=== PATIENT | female | born 1955 | race African-American/Black ===

== ENCOUNTER 2016-10-19 13:47 | Emergency (ER) | payer OTHER ==
--- NOTE | 2016-10-19 16:42 | Emergency Department Report ---
Chief Complaint: Abdominal Pain Stated Complaint: SIDE PAIN Time Seen by Provider: 10/19/16 16:36 - HPI History of Present Illness: 61-year-old female comes in with complaint of bilateral upper and right lower quadrant pain which she noticed more with deep breathing and movement. Denies any nausea any vomiting. Complains of shortness of breathing that started last night and has progressively getting worse. Past medical history of a cholecystectomy hysterectomy with some teeth removal. - Exam Vital Signs: Vital Signs 10/19/16 13:52 Temperature 98.1 F Pulse Rate 72 Respiratory 18 Rate Blood Pressure 127/59 O2 Sat by Pulse 100 Oximetry Physical Exam: Alert and oriented 3 cardiovascular S1-S2 regular rate and rhythm respiratory clear to auscultation bilaterally abdomen soft nontender nondistended. MSE screening note: Focused history and physical exam performed. Due to findings the following was ordered: He she'll be evaluated the main ER ED Disposition for MSE Condition: Stable Instructions: Abdominal Pain (ED)
[2016-10-19 17:17] LABS: Hematocrit 40.7 % (30.3-42.9); Hemoglobin 13.2 gm/dl (10.1-14.3); Mean Corpuscular HGB Conc 33 % (30-34); Mean Corpuscular Hemoglobin 29 pg (28-32); Mean Corpuscular Volume 89 fl (79-97); Platelet Count 302 K/mm3 (140-440); Red Blood Count 4.57 M/mm3 (3.65-5.03); Red Cell Distribution Width 13.4 % (13.2-15.2); White Blood Count 5.6 K/mm3 (4.5-11.0)
[2016-10-19 17:40] LABS: Alanine Aminotransferase 12 units/L (7-56); Albumin 4.6 g/dL (3.9-5); Albumin/Globulin Ratio 1.4 %; Alkaline Phosphatase 61 units/L (35-129); BUN/Creatinine Ratio 28.33; Bilirubin,Total 0.4 mg/dL (0.1-1.2); Blood Urea Nitrogen 17 mg/dL (7-17); Calcium 9.4 mg/dL (8.4-10.2); Carbon Dioxide 25 mmol/L (22-30); Chloride 101.5 mmol/L (98-107); Glucose 94 mg/dL (65-100); Lipase 50 units/L (13-60); Potassium 4.7 mmol/L (3.6-5.0); Sodium 142 mmol/L (137-145); Total Protein 7.8 g/dL (6.3-8.2)
[2016-10-19 17:42] LABS: Anion Gap 20 mmol/L
[2016-10-19 19:25] LABS: Bilirubin,Urine NEG (Negative); Blood,Urine SM (Negative); Ketones,Urine NEG (Negative); Leukocyte Esterase,Urine NEG (Negative); Nitrite,Urine NEG (Negative); Protein,Urine <15 mg/dL mg/dL (Negative); Urobilinogen,Urine < 2.0 mg/dL (<2.0); WBC,Urine < 1.0 /HPF (0.0-6.0)
[2016-10-19 20:14] VITALS: BP 107/56
[2016-10-19] MEDS ORDERED: ALUM-MAG HYDROX-SIMETH 200-200-20MG/5ML PO ONE (20:46)
--- NOTE | 2016-10-19 20:49 | Emergency Department Report ---
ED Abdominal Pain HPI - General Chief Complaint: Abdominal Pain Stated Complaint: SIDE PAIN Time Seen by Provider: 10/19/16 16:36 Source: patient, old records reviewed (patient had a colonoscopy performed September 2015) Mode of arrival: Ambulatory Limitations: No Limitations - History of Present Illness Initial Comments: 61-year-old female with a past medical history of anxiety, TMJ, osteoarthritis, previous hysterectomy, cholecystectomy, history of scar tissue presents to the hospital complains of abdominal pain since yesterday evening. Pain is in the left upper quadrant at this time. Pain was initially rated 8/10 intensity but currently mild since taken a Tylenol at approximately 3:25 PM. Pain described as intermittent stretching sensation. No worsening with palpation. No specific alleviating factors. Patient denies associated symptoms including nausea, vomiting, dysuria, fever, diarrhea, melena, or hematochezia. He was yesterday and normal. Patient also states she has been taking Motrin lately as prescribed for her TMJ. Severity scale (0 -10): 7 - Related Data Home Medications Medication Instructions Recorded Confirmed Last Taken Acetaminophen [Tylenol Arthritis] 325 mg PO PRN 10/19/16 10/19/16 10/19/16 Previous Rx's Medication Instructions Recorded Last Taken Type Mag Hydrox/Al Hydrox/Simeth 20 ml PO QID PRN #1 bottle 10/19/16 Unknown Rx [Maalox Advanced Suspension] Omeprazole Magnesium [PriLOSEC] 10 mg PO QDAY #30 suspdr.pkt 10/19/16 Unknown Rx Allergies Allergy/AdvReac Type Severity Reaction Status Date / Time aspirin AdvReac Unknown Verified 12/30/15 14:03 ED Review of Systems ROS: Stated complaint: SIDE PAIN Other details as noted in HPI Comment: All other systems reviewed and negative Other: Constitutional: No fevers chills Eyes: No eye pain visual changes ENT: No ear pain or throat pain Neck: Denies pain Respiratory: Denies cough wheezing shortness of breath Cardiovascular: Denies chest pain, palpitations, syncope GI: As per HPI : Denies dysuria Musculoskeletal: Denies back pain, joint swelling Skin: Denies rash, lesions, erythema Neurologic: Denies headache, numbness, weakness Psychiatric: Denies suicidal ideation, hallucinations ED Past Medical Hx - Past Medical History Hx Arthritis: Yes Additional medical history: anxiety, TMJ, osteroarthritis,Fx rib from fall - Surgical History Hx Cholecystectomy: Yes Additional Surgical History: hysterectomy, scar tissue, wisdom teeth - Social History Smoking Status: Never Smoker Substance Use Type: None - Medications Home Medications: Home Medications Medication Instructions Recorded Confirmed Last Taken Type Acetaminophen [Tylenol Arthritis] 325 mg PO PRN 10/19/16 10/19/16 10/19/16 History Mag Hydrox/Al Hydrox/Simeth 20 ml PO QID PRN #1 bottle 10/19/16 Unknown Rx [Maalox Advanced Suspension] Omeprazole Magnesium [PriLOSEC] 10 mg PO QDAY #30 suspdr.pkt 10/19/16 Unknown Rx ED Physical Exam - General Limitations: No Limitations - Other Other exam information: General: No limitations, patient is alert in no acute distress Head exam: Atraumatic, normocephalic Eyes exam: Normal appearance, pupils equal reactive to light, extraocular movements intact ENT: Moist mucous membrane, normal oropharynx Neck exam: Normal inspection, full range of motion, no meningismus nontender Respiratory exam: Clear to auscultation bilateral, no wheezes, rales, crackles Cardiovascular: Normal rate and rhythm, normal heart sounds Abdomen: Soft, nondistended, lower abdominal scar lower abdominal scar, mild increase in bowel sounds, no rebound, or guarding Extremity: Full range of motion normal inspection no deformity Back: Normal Inspection, full range of motion, no tenderness Neurologic: Alert, oriented x3, cranial nerves intact, no motor or sensory deficit Psychiatric: normal affect, normal mood Skin: Warm, dry, intact ED Course Vital Signs 10/19/16 10/19/16 10/19/16 13:52 20:13 20:35 Temperature 98.1 F 97.4 F L Pulse Rate 72 72 Respiratory 18 16 16 Rate Blood Pressure 127/59 Blood Pressure 107/56 [Right] O2 Sat by Pulse 100 99 99 Oximetry - Reevaluation(s) Reevaluation #1: 10/19/16 20:49 Maalox ordered for left upper quadrant pain. ED Medical Decision Making - Lab Data Result diagrams: 10/19/16 16:54 10/19/16 16:54 Lab Results 10/19/16 10/19/16 10/19/16 Range/Units 16:00 16:54 16:54 WBC 5.6 (4.5-11.0) K/mm3 RBC 4.57 (3.65-5.03) M/mm3 Hgb 13.2 (10.1-14.3) gm/dl Hct 40.7 (30.3-42.9) % MCV 89 (79-97) fl MCH 29 (28-32) pg MCHC 33 (30-34) % RDW 13.4 (13.2-15.2) % Plt Count 302 (140-440) K/mm3 Sodium 142 (137-145) mmol/L Potassium 4.7 (3.6-5.0) mmol/L Chloride 101.5 (98-107) mmol/L Carbon Dioxide 25 (22-30) mmol/L Anion Gap 20 mmol/L BUN 17 (7-17) mg/dL Creatinine 0.6 L (0.7-1.2) mg/dL Estimated GFR > 60 ml/min BUN/Creatinine Ratio 28.33 % Glucose 94 (65-100) mg/dL Calcium 9.4 (8.4-10.2) mg/dL Total Bilirubin 0.4 (0.1-1.2) mg/dL AST 21 (5-40) units/L ALT 12 (7-56) units/L Alkaline Phosphatase 61 (35-129) units/L Total Protein 7.8 (6.3-8.2) g/dL Albumin 4.6 (3.9-5) g/dL Albumin/Globulin Ratio 1.4 % Lipase 50 (13-60) units/L Urine Color Straw (Yellow) Urine Turbidity Clear (Clear) Urine pH 6.0 (5.0-7.0) Ur Specific [place] 1.005 (1.003-1.030) Urine Protein <15 mg/dl (Negative) mg/dL Urine Glucose (UA) Neg (Negative) mg/dL Urine Ketones Neg (Negative) mg/dL Urine Blood Sm (Negative) Urine Nitrite Neg (Negative) Urine Bilirubin Neg (Negative) Urine Urobilinogen < 2.0 (<2.0) mg/dL Ur Leukocyte Esterase Neg (Negative) Urine WBC (Auto) < 1.0 (0.0-6.0) /HPF Urine RBC (Auto) 1.0 (0.0-6.0) /HPF - Radiology Data Radiology results: image reviewed (two-view abdomen series: No acute findings no air-fluid levels or free air) - Medical Decision Making Patient is nontoxic-appearing with normal lab work unremarkable abdominal x- ray. Although she has risk factors for obstruction and she is not exhibiting any nausea, vomiting and continues to have normal bowel movements. She also states she is tolerating food intake. Pain is minimal on exam improved with Tylenol. She'll be placed on PPI and Maalox since pain is left upper quadrant and patient just started instead use for TMJ and outpatient follow-up will be encouraged - Differential Diagnosis PUD, dyspepsia, obstruction, stomach ache, infection Critical Care Time: No Critical care attestation.: If time is entered above; I have spent that time in minutes in the direct care of this critically ill patient, excluding procedure time. ED Disposition Clinical Impression: Abdominal pain, left upper quadrant Disposition: DISCHARGED TO HOME OR SELFCARE Is pt being admited?: No Does the pt Need Aspirin: No Condition: Stable Instructions: Abdominal Pain (ED) Additional Instructions: Continue Tylenol as needed for pain. Take the medication as prescribed. Return if symptoms worsen. Follow-up with your doctor within 2-3 days for reevaluation. Prescriptions: Mag Hydrox/Al Hydrox/Simeth [Maalox Advanced Suspension] 20 ml PO QID PRN #1 bottle PRN Reason: Indigestion Omeprazole Magnesium [PriLOSEC] 10 mg PO QDAY #30 suspdr.pkt Referrals: JESSIKA VICENTE MD [Primary Care Provider] - 2-3 Days Time of Disposition: 21:43
--- NOTE | 2016-10-20 09:42 | XRay Report ---
ABDOMEN TWO VIEWS: 10/19/16 20:33:00 CLINICAL: Abdominal pain. No comparison. FINDINGS: Supine upright views demonstrate a normal bowel gas pattern with moderate stool throughout colon. No distended bowel and no air-fluid levels. No mass or suspicious calcifications. Benign phleboliths in the pelvis. The bones and soft tissues are normal. IMPRESSION: Negative abdomen.
== END 2016-10-19 22:06 | disposition home or self-care (01) ==
LOC: ED 13:47
DX: R10.12 Left upper quadrant pain (principal); M19.90 Unspecified osteoarthritis, unspecified site; F41.9 Anxiety disorder, unspecified; Z88.6 Allergy status to analgesic agent
CPT/HCPCS: 36415; 74020; 80053; 81001; 83690; 85027; 99284

== ENCOUNTER 2017-02-17 12:05 | Emergency (ER) | payer OTHER ==
[2017-02-17 13:06] LABS: Basophils % (Auto) 0.4 % (0.0-1.8); Eosinophils % (Auto) 1.1 % (0.0-4.3); Hematocrit 39.4 % (30.3-42.9); Hemoglobin 13.2 gm/dl (10.1-14.3); Mean Corpuscular HGB Conc 34 % (30-34); Mean Corpuscular Hemoglobin 30 pg (28-32); Mean Corpuscular Volume 90 fl (79-97); Platelet Count 283 K/mm3 (140-440); Red Blood Count 4.39 M/mm3 (3.65-5.03); Red Cell Distribution Width 13.1 % (13.2-15.2); White Blood Count 5.1 K/mm3 (4.5-11.0)
[2017-02-17 13:16] LABS: Alanine Aminotransferase 14 units/L (7-56); Albumin 4.5 g/dL (3.9-5); Albumin/Globulin Ratio 1.6 %; Alkaline Phosphatase 53 units/L (35-129); Anion Gap 19 mmol/L; Blood Urea Nitrogen 12 mg/dL (7-17); Calcium 9.4 mg/dL (8.4-10.2); Carbon Dioxide 27 mmol/L (22-30); Chloride 99.5 mmol/L (98-107); Glucose 108 mg/dL (65-100); Lipase 41 units/L (13-60); Potassium 4.2 mmol/L (3.6-5.0); Sodium 141 mmol/L (137-145); Total Protein 7.3 g/dL (6.3-8.2)
[2017-02-17 13:41] LABS: Bilirubin,Urine NEG (Negative); Blood,Urine SM (Negative); Ketones,Urine NEG (Negative); Leukocyte Esterase,Urine NEG (Negative); Nitrite,Urine NEG (Negative); Protein,Urine <15 mg/dL mg/dL (Negative); Urobilinogen,Urine < 2.0 mg/dL (<2.0)
--- NOTE | 2017-02-17 17:13 | Emergency Department Report ---
ED Abdominal Pain HPI - General Chief Complaint: Abdominal Pain Stated Complaint: SOB Time Seen by Provider: 02/17/17 16:31 Source: patient Mode of arrival: Ambulatory Limitations: No Limitations - History of Present Illness Initial Comments: 61-year-old female with a past medical history of chronic abdominal pain, diverticulosis, anxiety, TMJ, and arthritis presents hospital complaints of ongoing abdominal pain that worsened this morning. Patient complain of left upper quadrant abdominal pain that started about 11 AM that felt like gas. Patient has has had several episodes of belching. Since waiting to be seen in the ER pain has spontaneously resolved. She denies nausea, vomiting, diarrhea, fever, melena, or hematochezia. Patient had a normal bowel movement this morning. Previous abdominal surgeries include cholecystectomy and hysterectomy. Patient had an outpatient CT performed on the 2016 ordered by PMD that show constipation and diverticulosis. She apparently had a colonoscopy performed by Dr. Kearney last year without any significant findings. She has an outpatient appointment scheduled with Dr. Jones GI March 18 for evaluation of ongoing upper abdominal pain. Patient is not currently on any PPI , H2 elton, or antiacid. Patient taken Tylenol intermittently for pain. PMD : Dr. Goodwin - Related Data Home Medications Medication Instructions Recorded Confirmed Last Taken Acetaminophen [Tylenol Arthritis] 325 mg PO PRN 10/19/16 10/19/16 10/19/16 Previous Rx's Medication Instructions Recorded Last Taken Type Mag Hydrox/Al Hydrox/Simeth 20 ml PO QID PRN #1 bottle 02/17/17 Unknown Rx [Maalox Advanced Suspension] Omeprazole Magnesium [PriLOSEC] 10 mg PO QDAY #30 suspdr.pkt 02/17/17 Unknown Rx traMADol [Ultram 50 MG tab] 50 mg PO Q6HR PRN #20 tablet 02/17/17 Unknown Rx Allergies Allergy/AdvReac Type Severity Reaction Status Date / Time aspirin AdvReac Unknown Verified 12/30/15 14:03 ED Review of Systems ROS: Stated complaint: SOB Other details as noted in HPI Comment: All other systems reviewed and negative Other: Constitutional: No fevers chills Eyes: No eye pain visual changes ENT: No ear pain or throat pain Neck: Denies pain Respiratory: Denies cough wheezing shortness of breath Cardiovascular: Denies chest pain, palpitations, syncope GI: as per hpi : Denies dysuria Musculoskeletal: Denies back pain Skin: Denies rash, lesions, erythema Neurologic: Denies headache, numbness, weakness Psychiatric: Denies suicidal ideation, hallucinations ED Past Medical Hx - Past Medical History Hx Arthritis: Yes Additional medical history: anxiety, TMJ, osteroarthritis,Fx rib from fall - Surgical History Hx Cholecystectomy: Yes Additional Surgical History: hysterectomy, scar tissue, wisdom teeth - Social History Smoking Status: Never Smoker Substance Use Type: None - Medications Home Medications: Home Medications Medication Instructions Recorded Confirmed Last Taken Type Acetaminophen [Tylenol Arthritis] 325 mg PO PRN 10/19/16 10/19/16 10/19/16 History Mag Hydrox/Al Hydrox/Simeth 20 ml PO QID PRN #1 bottle 02/17/17 Unknown Rx [Maalox Advanced Suspension] Omeprazole Magnesium [PriLOSEC] 10 mg PO QDAY #30 suspdr.pkt 02/17/17 Unknown Rx traMADol [Ultram 50 MG tab] 50 mg PO Q6HR PRN #20 tablet 02/17/17 Unknown Rx ED Physical Exam - General Limitations: No Limitations - Other Other exam information: General: No limitations, patient is alert in no acute distress Head exam: Atraumatic, normocephalic Eyes exam: Normal appearance ENT: Moist mucous membrane, normal oropharynx Neck exam: Normal inspection, full range of motion, Respiratory exam: Clear to auscultation bilateral, no wheezes, rales, crackles Cardiovascular: Normal rate and rhythm, normal heart sounds Abdomen: Soft, nondistended, and nontender, with normal bowel sounds, no rebound, or guarding Extremity: Full range of motion normal inspection no deformity Back: Normal Inspection, full range of motion, no tenderness Neurologic: Alert, oriented x3, cranial nerves intact, no motor or sensory deficit Psychiatric: normal affect, normal mood Skin: Mild erythema at its inferior umbilicus ED Course Vital Signs 02/17/17 12:10 Temperature 98.4 F Pulse Rate 73 Respiratory 18 Rate Blood Pressure 136/79 O2 Sat by Pulse 99 Oximetry ED Medical Decision Making - Lab Data Result diagrams: 02/17/17 12:42 02/17/17 12:42 Lab Results 02/17/17 02/17/17 02/17/17 Range/Units 12:40 12:42 12:42 WBC 5.1 (4.5-11.0) K/mm3 RBC 4.39 (3.65-5.03) M/mm3 Hgb 13.2 (10.1-14.3) gm/dl Hct 39.4 (30.3-42.9) % MCV 90 (79-97) fl MCH 30 (28-32) pg MCHC 34 (30-34) % RDW 13.1 L (13.2-15.2) % Plt Count 283 (140-440) K/mm3 Lymph % (Auto) 38.8 H (13.4-35.0) % [place] % (Auto) 6.0 (0.0-7.3) % Eos % (Auto) 1.1 (0.0-4.3) % Baso % (Auto) 0.4 (0.0-1.8) % Lymph # 2.0 (1.2-5.4) K/mm3 [place] # 0.3 (0.0-0.8) K/mm3 Eos # 0.1 (0.0-0.4) K/mm3 Baso # 0.0 (0.0-0.1) K/mm3 Seg Neutrophils % 53.7 (40.0-70.0) % Seg Neutrophils # 2.7 (1.8-7.7) K/mm3 Sodium 141 (137-145) mmol/L Potassium 4.2 (3.6-5.0) mmol/L Chloride 99.5 (98-107) mmol/L Carbon Dioxide 27 (22-30) mmol/L Anion Gap 19 mmol/L BUN 12 (7-17) mg/dL Creatinine 0.6 L (0.7-1.2) mg/dL Estimated GFR > 60 ml/min BUN/Creatinine Ratio 20.00 % Glucose 108 H (65-100) mg/dL Calcium 9.4 (8.4-10.2) mg/dL Total Bilirubin 0.50 (0.1-1.2) mg/dL AST 20 (5-40) units/L ALT 14 (7-56) units/L Alkaline Phosphatase 53 (35-129) units/L Total Protein 7.3 (6.3-8.2) g/dL Albumin 4.5 (3.9-5) g/dL Albumin/Globulin Ratio 1.6 % Lipase 41 (13-60) units/L Urine Color Colorless (Yellow) Urine Turbidity Clear (Clear) Urine pH 7.0 (5.0-7.0) Ur Specific [place] 1.002 L (1.003-1.030) Urine Protein <15 mg/dl (Negative) mg/dL Urine Glucose (UA) Neg (Negative) mg/dL Urine Ketones Neg (Negative) mg/dL Urine Blood Sm (Negative) Urine Nitrite Neg (Negative) Urine Bilirubin Neg (Negative) Urine Urobilinogen < 2.0 (<2.0) mg/dL Ur Leukocyte Esterase Neg (Negative) Urine WBC (Auto) 1.0 (0.0-6.0) /HPF Urine RBC (Auto) 1.0 (0.0-6.0) /HPF - Medical Decision Making Patient's symptoms resolved spontaneously without any specific treatment in the ED. Patient not having any signs of instructions his abdomen is soft, flat, nondistended and she is not having any nausea or vomiting and had a normal bowel movement this a.m. Lab work is unremarkable. Pain is seems to be ongoing and chronic and patient has outpatient workup scheduled. She will be treated with PPI and Maalox for gas-like left upper quadrant pain - Differential Diagnosis dyspepsia, gastritis, obstruction, constipation, UTI, renal colic Critical Care Time: No Critical care attestation.: If time is entered above; I have spent that time in minutes in the direct care of this critically ill patient, excluding procedure time. ED Disposition Clinical Impression: Abdominal pain, left upper quadrant, Dyspepsia Disposition: DISCHARGED TO HOME OR SELFCARE Is pt being admited?: No Does the pt Need Aspirin: No Condition: Stable Instructions: Abdominal Pain (ED), Chronic Indigestion (ED) Additional Instructions: Take the medication as prescribed. Follow up with your primary care doctor and GI specialist as scheduled. Return if symptoms worsen. Prescriptions: Mag Hydrox/Al Hydrox/Simeth [Maalox Advanced Suspension] 20 ml PO QID PRN #1 bottle PRN Reason: Indigestion Omeprazole Magnesium [PriLOSEC] 10 mg PO QDAY #30 suspdr.pkt traMADol [Ultram 50 MG tab] 50 mg PO Q6HR PRN #20 tablet PRN Reason: Pain Referrals: HUANG GOODWIN MD [Primary Care Provider] - 3-5 Days DARIO JONES MD [Staff Physician] - 7-10 days (GI specialist) Time of Disposition: 17:18
[2017-02-17 17:58] VITALS: BP 125/87
== END 2017-02-17 17:58 | disposition home or self-care (01) ==
LOC: ED 12:05
DX: R10.13 Epigastric pain (principal); F41.9 Anxiety disorder, unspecified; M19.90 Unspecified osteoarthritis, unspecified site; Z90.710 Acquired absence of both cervix and uterus; Z88.6 Allergy status to analgesic agent
CPT/HCPCS: 36415; 80053; 81001; 83690; 85025

== ENCOUNTER 2017-07-06 16:24 | Emergency (ER) | payer OTHER ==
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
[2017-07-06 19:01] LABS: Basophils % (Auto) 0.4 % (0.0-1.8); Eosinophils % (Auto) 1.1 % (0.0-4.3); Hematocrit 40.3 % (30.3-42.9); Hemoglobin 13.7 gm/dl (10.1-14.3); Mean Corpuscular HGB Conc 34 % (30-34); Mean Corpuscular Hemoglobin 30 pg (28-32); Mean Corpuscular Volume 90 fl (79-97); Platelet Count 316 K/mm3 (140-440); White Blood Count 6.6 K/mm3 (4.5-11.0)
[2017-07-06 19:20] LABS: Alanine Aminotransferase 14 units/L (7-56); Albumin 4.5 g/dL (3.9-5); Albumin/Globulin Ratio 1.5 %; Alkaline Phosphatase 55 units/L (35-129); Anion Gap 19 mmol/L; BUN/Creatinine Ratio 35; Blood Urea Nitrogen 21 mg/dL (7-17); Carbon Dioxide 27 mmol/L (22-30); Chloride 100.1 mmol/L (98-107); Glucose 108 mg/dL (65-100); Potassium 4.3 mmol/L (3.6-5.0); Sodium 142 mmol/L (137-145); Total Protein 7.6 g/dL (6.3-8.2)
[2017-07-06 19:23] LABS: Bacteria,Urine 1+ /HPF (Negative); Bilirubin,Urine NEG (Negative); Blood,Urine NEG (Negative); Ketones,Urine NEG (Negative); Leukocyte Esterase,Urine NEG (Negative); Mucus,Urine 1+ /HPF; Nitrite,Urine NEG (Negative); Protein,Urine <15 mg/dL mg/dL (Negative); Urobilinogen,Urine < 2.0 mg/dL (<2.0)
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
[2017-07-06] MEDS ORDERED: PERCOCET 5/325 PO ONE (21:04)
[2017-07-06] MEDS ORDERED: ZOFRAN ODT PO ONE (22:52)
[2017-07-06 23:52] VITALS: BP 141/75
== END 2017-07-06 23:39 | disposition home or self-care (01) ==
LOC: ED 16:24
DX: S82.52XA Displaced fracture of medial malleolus of left tibia, initial encounter for closed fracture (principal); M19.90 Unspecified osteoarthritis, unspecified site; Z88.6 Allergy status to analgesic agent; X58.XXXA Exposure to other specified factors, initial encounter; Y93.89 Activity, other specified; Y92.89 Other specified places as the place of occurrence of the external cause; Y99.8 Other external cause status
CPT/HCPCS: 36415; 72170; 80053; 81001; 85025; 99284; Q0162

== ENCOUNTER 2017-07-07 15:12 | Emergency (ER) | payer OTHER ==
[2017-07-07 15:29] VITALS: BP 131/46
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
== END 2017-07-07 16:20 | disposition home or self-care (01) ==
LOC: ED 15:12
DX: S82.52XA Displaced fracture of medial malleolus of left tibia, initial encounter for closed fracture (principal); M19.90 Unspecified osteoarthritis, unspecified site; Z98.890 Other specified postprocedural states; Z88.8 Allergy status to other drugs, medicaments and biological substances; X58.XXXA Exposure to other specified factors, initial encounter; Y93.9 Activity, unspecified; Y99.9 Unspecified external cause status; Y92.89 Other specified places as the place of occurrence of the external cause
CPT/HCPCS: 99282

== ENCOUNTER 2017-07-15 13:40 | Day surgery (SDC) | payer OTHER ==
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
[2017-07-15] MEDS ORDERED: VERSED IV PRN (14:18)
[2017-07-15] MEDS ORDERED: DILAUDID ONE (14:25)
[2017-07-15] MEDS ORDERED: XYLOCAINE MPF 2% ONE (14:26)
[2017-07-15] MEDS ORDERED: ZOFRAN ONE (14:27)
[2017-07-15] MEDS ORDERED: DECADRON ONE (14:27)
[2017-07-15] MEDS ORDERED: DIPRIVAN 10 MG/ML IV ONE (14:27)
--- NOTE | 2017-07-15 14:32 | Anesthesia Consultation ---
Anesthesia Consult and Med Hx Date of service: 07/15/17 - Airway Anesthetic Teeth Evaluation: Poor, Partials ROM Head & Neck: Adequate Mental/Hyoid Distance: Adequate Mallampati Class: Class II Intubation Access Assessment: Good - Pulmonary Exam CTA: Yes - Cardiac Exam Cardiac Exam: RRR - Pre-Operative Health Status ASA Pre-Surgery Classification: ASA2 Proposed Anesthetic Plan: General - Pulmonary Hx Asthma: No COPD: No Hx Sleep Apnea: No - Cardiovascular System Hx Hypertension: No Hx Heart Attack/AMI: No Hx Pacemaker: No Hx Internal Defibrillator: No - Central Nervous System Hx Seizures: No - Endocrine Hx Renal Disease: No Hx Liver Disease: No - Hematic Hx Sickle Cell Disease: No - Other Systems Hx Cancer: No - Additional Comments Anesthesia Medical History Comments: emaciated
[2017-07-15] MEDS ORDERED: DILAUDID IV PRN (14:33)
--- NOTE | 2017-07-15 14:33 | Anesthesia Day of Surgery ---
Anesthesia Day of Surgery - Day of Surgery Patient Examined: Yes Patient H&P Reviewed: Yes Patient is NPO: Yes
[2017-07-15] MEDS ORDERED: PEPCID IV NR (15:00)
[2017-07-15] MEDS ORDERED: PERCOCET 5/325 PO PRN ×2 (15:00→17:29)
[2017-07-15] MEDS ORDERED: ZOFRAN IV PRN (15:00)
[2017-07-15] MEDS ORDERED: NACL 0.9% 1000 ML 1,000 ML IV SCH (15:00)
[2017-07-15] MEDS ORDERED: ANCEF/STERILE WATER 2 GM/20 ML IV NR (15:00)
[2017-07-15] MEDS ORDERED: ePHEDrine SULFATE ONE (15:54)
[2017-07-15] MEDS ORDERED: NACL 0.9% 1000 ML 1,000 ML ONE (15:58)
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
--- NOTE | 2017-07-15 16:49 | XRay Report ---
LEFT ANKLE, 2 VIEWS History: Medial malleolus fracture, intraoperative films. Findings: Frontal and lateral fluoroscopic images of the left ankle were obtained during surgery. The images demonstrate internal fixation of the medial malleolus with 2 orthopedic screws. Alignment is anatomic. Impression: Internal fixation of a medial malleolus fracture.
[2017-07-15 18:25] VITALS: BP 148/66
== END 2017-07-15 18:35 | disposition home or self-care (01) ==
LOC: OR 13:40
PROVIDERS: ATTEND Orthopaedic Surgery
DX: S82.52XA Displaced fracture of medial malleolus of left tibia, initial encounter for closed fracture (principal); X58.XXXA Exposure to other specified factors, initial encounter; Y93.89 Activity, other specified; Y92.89 Other specified places as the place of occurrence of the external cause; Y99.8 Other external cause status
CPT/HCPCS: 27766; 73600; C1713; C1769; J0690; J1100; J1170; J2250; J2405; J2704; J7030

== ENCOUNTER 2017-08-30 11:26 | Outpatient (CLI) | payer OTHER ==
--- NOTE | 2017-08-30 12:08 | XRay Report ---
LEFT ANKLE, 3 VIEWS History: Pain Findings: The medial malleolus fracture has been internally fixated with 2 orthopedic screws since 07/06/17. Fracture lines remain evident with little sign of healing. Nondisplaced fracture of the distal fibula is also suspected which is unchanged in position and alignment and demonstrate little signs of healing. There are mild degenerative changes at the ankle joint. No new fracture. Impression: Bimalleolar fracture as described above with little signs of healing since 07/06/17.
== END 2017-08-30 11:27 | disposition home or self-care (01) ==
LOC: XRAY 11:26
PROVIDERS: ATTEND Orthopaedic Surgery
DX: S82.842D Displaced bimalleolar fracture of left lower leg, subsequent encounter for closed fracture with routine healing (principal); M19.072 Primary osteoarthritis, left ankle and foot; X58.XXXD Exposure to other specified factors, subsequent encounter

== ENCOUNTER 2018-01-12 13:03 | Emergency (ER) | payer OTHER ==
[2018-01-12 13:40] VITALS: BP 129/62
[2018-01-12 13:58] LABS: Basophils % (Auto) 0.2 % (0.0-1.8); Eosinophils # (Auto) 0.1 K/mm3 (0.0-0.4); Eosinophils % (Auto) 1.1 % (0.0-4.3); Hematocrit 41.1 % (30.3-42.9); Hemoglobin 13.9 gm/dl (10.1-14.3); Lymphocytes # (Auto) 1.6 K/mm3 (1.2-5.4); Lymphocytes % (Auto) 23.8 % (13.4-35.0); Mean Corpuscular HGB Conc 34 % (30-34); Mean Corpuscular Hemoglobin 30 pg (28-32); Mean Corpuscular Volume 89 fl (79-97); Monocytes # (Auto) 0.4 K/mm3 (0.0-0.8); Monocytes % (Auto) 6.6 % (0.0-7.3); Platelet Count 349 K/mm3 (140-440); Red Cell Distribution Width 13.4 % (13.2-15.2)
[2018-01-12 14:11] LABS: Alanine Aminotransferase 14 units/L (7-56); Albumin 4.6 g/dL (3.9-5); BUN/Creatinine Ratio 40; Blood Urea Nitrogen 24 mg/dL (7-17); Calcium 9.2 mg/dL (8.4-10.2); Hemolysis Index 5
[2018-01-12] MEDS ORDERED: TYLENOL PO ONE (14:26)
--- NOTE | 2018-01-12 14:28 | Emergency Department Report ---
Chief Complaint: Abdominal Pain Stated Complaint: ABD PAIN/LEFT SIDE PAIN Time Seen by Provider: 01/12/18 14:19 - HPI History of Present Illness: The patient is a 62-year-old female with a history of hysterectomy, and whom presents for evaluation of abdominal pain. The patient reports left lower quadrant abdominal pain since last night, constant, moderate in severity, crampy in quality, exacerbated with movement. The patient denies fever, chills, night sweats, diarrhea, blood in the stool, dark tarry stool, dysuria, hematuria , flank pain, genital discharge, inability to pass flatus. - Exam Vital Signs: Vital Signs 01/12/18 13:38 Temperature 98.4 F Pulse Rate 71 Respiratory 18 Rate Blood Pressure 129/62 O2 Sat by Pulse 96 Oximetry Physical Exam: General: well-nourished, well-developed, no acute distress Head: Normocephalic, atraumatic Eyes: normal sclera ENT: Mucous membranes are pink and moist Neck: trachea midline, neck supple, No neck stiffness, no cervical adenopathy Respiratory: Breath sounds equal bilaterally, no wheezing, rales, or rhonchi Cardio: S1 and S2 present, no murmurs, rubs, gallops, capillary refill is brisk Abdomen: Normoactive bowel sounds, soft abdomen, left lower quadrant tenderness to palpation present, no pain at McBurney's point, Humphreys sign negative no rigidity, no guarding or rebound tenderness Chest WALL/Back: No tenderness to palpation of the chest wall, no CVA tenderness with percussion Musc: No pitting edema Skin: No rash Neuro: no facial drooping, normal speech Psych: Normal affect MSE screening note: Focused history and physical exam performed. Due to findings the following was ordered: ED Medical Decision Making - Lab Data Result diagrams: 01/12/18 13:46 01/12/18 13:46 ED Disposition for MSE Condition: Undetermined Instructions: Abdominal Pain (ED)
[2018-01-12 15:16] LABS: Bilirubin,Urine NEG (Negative); Blood,Urine SM (Negative); Color,Urine Yellow (Yellow); Mucus,Urine FEW /HPF; Protein,Urine <15 mg/dL mg/dL (Negative); Urobilinogen,Urine < 2.0 mg/dL (<2.0)
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
== END 2018-01-12 16:21 | disposition home or self-care (01) ==
LOC: ED 13:03
DX: R10.32 Left lower quadrant pain (principal); F41.9 Anxiety disorder, unspecified; Z88.6 Allergy status to analgesic agent; Z90.710 Acquired absence of both cervix and uterus
CPT/HCPCS: 36415; 80053; 81001; 85025; 99283

== ENCOUNTER 2018-03-27 08:39 | Emergency (ER) | payer OTHER ==
[2018-03-27 09:04] VITALS: BP 129/82
== END 2018-03-27 12:45 | disposition left against medical advice (07) ==
LOC: ED 08:39
DX: R10.32 Left lower quadrant pain (principal); Z53.21 Procedure and treatment not carried out due to patient leaving prior to being seen by health care provider

== ENCOUNTER 2019-07-24 12:44 | Emergency (ER) | payer MEDICARE, OTHER ==
[2019-07-24 12:50] VITALS: BP 142/96
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
== END 2019-07-24 15:28 | disposition home or self-care (01) ==
LOC: ED 12:44
DX: S70.02XA Contusion of left hip, initial encounter (principal); M19.90 Unspecified osteoarthritis, unspecified site; F41.9 Anxiety disorder, unspecified; Z90.49 Acquired absence of other specified parts of digestive tract; Z90.710 Acquired absence of both cervix and uterus; Z79.899 Other long term (current) drug therapy; Z88.8 Allergy status to other drugs, medicaments and biological substances; V89.2XXA Person injured in unspecified motor-vehicle accident, traffic, initial encounter; Y93.89 Activity, other specified; Y92.410 Unspecified street and highway as the place of occurrence of the external cause; Y99.8 Other external cause status
CPT/HCPCS: 72170

== ENCOUNTER 2019-07-29 15:04 | Outpatient (CLI) | payer MEDICARE ==
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
== END 2019-07-29 15:05 | disposition home or self-care (01) ==
LOC: XRAY 15:04
PROVIDERS: ATTEND Orthopaedic Surgery
DX: M19.042 Primary osteoarthritis, left hand (principal); Z90.710 Acquired absence of both cervix and uterus; F41.9 Anxiety disorder, unspecified; F32.9 Major depressive disorder, single episode, unspecified; Z98.890 Other specified postprocedural states